=== PATIENT | female | born 1995 | race Caucasian/White ===

== ENCOUNTER 2017-11-04 11:36 | Emergency (ER) | payer SELFPAY ==
--- NOTE | 2017-11-04 12:20 | ED.PDOC ---
History of Present Illness - General Chief Complaint: GI Problem Stated Complaint: Nausea/ vomiting x 12 hours, yeast infection Time Seen by Provider: 11/04/17 12:17 Source: patient Exam Limitations: no limitations - History of Present Illness Timing/Duration: 24 hours Severity: mild Improving Factors: nothing Worsening Factors: eating Associated Symptoms: denies symptoms, other - patient reports that has had vomiting for the last 24 hours, has been tolerating some po fluids but no food, vomit is discribed as food and mucus, no blood or bile. no abd pain, did have some cramping just prior to vomiting that goes away afterwards, also states that has white thich vaginal discharge that has been treating with monistate cream, has devoloped a small painful area Allergies/Adverse Reactions: Allergies NO KNOWN ALLERGY Allergy (Verified 11/04/17 12:20) Home Medications: Ambulatory Orders Fluconazole 200 mg PO ONCE #1 tab 11/04/17 Miconazole Nitrate 2 % Vag Cr [Monistat-7 Cream] 1 applic VAG DAILY 11/04/17 Ondansetron [Zofran Odt] 4 mg PO BID PRN #12 tab 11/04/17 Review of Systems - Review of Systems Constitutional: States: no symptoms reported. Denies: fever EENTM: States: no symptoms reported Respiratory: States: no symptoms reported. Denies: cough, short of breath, wheezing Cardiology: States: no symptoms reported Gastrointestinal/Abdominal: States: nausea, vomiting. Denies: abdominal pain, constipation, diarrhea Genitourinary: Denies: dysuria, frequency, hematuria, pain Musculoskeletal: States: no symptoms reported Skin: States: rash Neurological: States: no symptoms reported Endocrine: States: no symptoms reported Hematologic/Lymphatic: States: no symptoms reported Past Medical History (General) - Patient Medical History Hx Diabetes: No - Social History Hx Tobacco Use: Yes - Female History Hx Last Menstrual Period: 04/04/14 Patient : No Family Medical History - Family History Mother Family History: No Known Living Status: Still Living Physical Exam - Physical Exam General Appearance: Alert, Comfortable, No apparent distress, Well Developed, Well Groomed, Well Hydrated, Well Nourished Ears, Nose, Throat: hearing grossly normal, normal ENT inspection, normal pharynx Neck: non-tender, full range of motion, supple Respiratory: chest non-tender, lungs clear, normal breath sounds, no respiratory distress, no accessory muscle use Cardiovascular/Chest: normal peripheral pulses, regular rate, rhythm, no edema, no gallop, no JVD, no murmur Gastrointestinal/Abdominal: normal bowel sounds, non tender, soft Extremity: normal range of motion, non-tender Neurologic: no motor/sensory deficits, alert, normal mood/affect Skin Exam: rash - small linear superficial ulceration between vulva and upper thigh, painful to touch Progress - Progress Progress: 11/04/17 12:33 Laboratory Results Urine Color Yellow (Yellow) 11/04/17 12:03 Urine Appearance Clear (Clear) 11/04/17 12:03 Urine pH 7.0 (4.5-7.8) 11/04/17 12:03 Ur Specific Dickson 1.020 (1.005-1.030) 11/04/17 12:03 Urine Protein Negative mg/dL 11/04/17 12:03 Urine Glucose (UA) Negative mg/dL (Negative) 11/04/17 12:03 Urine Ketones Trace mg/dL (NEGATIVE) 11/04/17 12:03 Urine Blood Negative (Negative) 11/04/17 12:03 Urine Nitrite Negative 11/04/17 12:03 Urine Bilirubin Negative (NEGATIVE) 11/04/17 12:03 Urine Urobilinogen 2.0 mg/dL (0.2-1.0) H 11/04/17 12:03 Ur Leukocyte Esterase Negative (Negative) 11/04/17 12:03 Urine RBC 0 /hpf 11/04/17 12:03 Urine WBC 0-1 /hpf 11/04/17 12:03 Ur Epithelial Cells 1-3 /hpf 11/04/17 12:03 Urine Bacteria Rare 11/04/17 12:03 pt feeling improved, no vomiting, will return if acute worsening, will start treatment for yeast vaginitis Departure - Departure Clinical Impression: Ulcer, Yeast vaginitis Vomiting Qualifiers: Vomiting type: unspecified Vomiting Intractability: non-intractable Nausea presence: with nausea Qualified Code(s): R11.2 - Nausea with vomiting, unspecified Time of Disposition: 12:35 Disposition: Discharge to Home or Self Care Condition: Excellent Departure Forms: ED Discharge - Pt. Copy, Patient Portal Self Enrollment Diet: resume usual diet Activity: increase activity as tolerated Prescriptions: Fluconazole 200 mg PO ONCE #1 tab Ondansetron [Zofran Odt] 4 mg PO BID PRN #12 tab PRN Reason: Nausea Home Medications: Ambulatory Orders Fluconazole 200 mg PO ONCE #1 tab 11/04/17 Miconazole Nitrate 2 % Vag Cr [Monistat-7 Cream] 1 applic VAG DAILY 11/04/17 Ondansetron [Zofran Odt] 4 mg PO BID PRN #12 tab 11/04/17
[2017-11-04 12:21] VITALS: TEMP 97.6
[2017-11-04] MEDS ORDERED: ONDANSETRON ODT 8 MG TAB SL ONE (12:25)
[2017-11-04 12:59] VITALS: BP 98/67; O2SAT 99
== END 2017-11-04 12:55 | disposition home or self-care (01) ==
LOC: ER 11:36
DX: R11.2 Nausea with vomiting, unspecified (principal); B37.3 Candidiasis of vulva and vagina; L98.498 Non-pressure chronic ulcer of skin of other sites with other specified severity

== ENCOUNTER → 2020-07-03 | Outpatient (CLI) | payer OTHER ==
--- NOTE | 2020-07-04 13:50 | US ---
EXAM DESCRIPTION: OB ,Limited: Ultrasound. CLINICAL HISTORY: 24 years Female Gestational size and dates correlation. Third trimester. Possible defect in upper lip. unknown. By clinical history , EGA today is 29 weeks, 0 days, with GUY of September 18, 2020. COMPARISON: Previous OB ultrasound none. TECHNIQUE: Trans-pelvic scanning through the urine-filled bladder; stephens-scale, color Doppler, and M-mode sonography. FINDINGS: Single, intrauterine gestation, cephalic position. Amniotic fluid volume and YANIRA: Not measured. Subjectively normal. Maternal cervix internal os closed.. Placenta anterior with no evidence of previa or abruptio. heart rate by M-mode sonography 133 beats/min. limb activity observed. structural survey: Situs solitus. The following structures were visualized and grossly normal - urinary bladder, stomach, and bilateral kidneys; cord insertion, 3-vessel cord and 4 extremities; spine transverse and longitudinal 4-chamber heart right and left ventricular outflow tracts; diaphragm, bilateral choroid plexus, lateral ventricles, cerebellum, and cisterna magna. Nose/lips seen profile and en face. No cleft palate or lytic defect. Ultrasound parameter measurements for estimating gestational age: BPD 7.2 cm 28/5 (weeks/days). Head circumference 26 cm 28/2. Abdominal circumference 23.8 cm 28/1. Femur length 5.3 cm 28/1. Ultrasound parameter ratios and cephalic index within the normal range. Mean estimated gestational age 28 weeks 2 days, corresponding to GUY of September 23, 2020. Estimated weight based on these measurements is 1184+/- 178 g. 2 pounds, 10 ounces 13th percentile by clinical history. Bilateral adnexa not well seen; ovaries not seen. IMPRESSION: 1. Single, living, intrauterine gestation in cephalic presentation. Amniotic fluid volume subjectively normal, and maternal cervix internal os closed. Placenta anterior with no evidence of previa. Structural survey limited by age. No abnormalities in the nose and lips.. 2. Estimated gestational age by today's ultrasound examination is 28 weeks 2 days with GUY September 23, 2020. This is 5 days younger than the estimated gestation age by medical history. 3. Estimated weight is 1184 g. 2 pounds, 10 ounces. 13th Percentile by clinical history Electronically signed by: Mauricio Chen MD 07/04/2020 1:49 PM BUSINESS ASST
== END ==
LOC: US 15:36
PROVIDERS: ATTEND Emergency Medicine
DX: Z34.83 Encounter for supervision of other normal pregnancy, third trimester (principal); Z3A.28 28 weeks gestation of pregnancy